=== PATIENT | female | born 1975 | race African-American/Black ===

== ENCOUNTER 2021-01-07 08:12 | Emergency (ER) | payer MEDICAID, OTHER ==
[~2021-01-07] VITALS: Ht 180.3 cm; Wt 89.0 kg
[2021-01-07] MEDS ORDERED: ONDA4TAB11 PO (08:53)
[2021-01-07] MEDS ORDERED: IBUP-2028 MT (08:54)
[2021-01-07] MEDS ORDERED: ONDANSETRON HCL 4MG/2ML INJ IV ONE (09:00)
[2021-01-07] MEDS ORDERED: SODIUM CHLORIDE 0.9% 1,000 ML IV ONE (09:00)
[2021-01-07] MEDS ORDERED: KETOROLAC 30MG/ML VIAL IV ONE (09:00)
[2021-01-07 10:44] LABS: BASOPHILS % 0.5 % (0.0-2.0); HEMATOCRIT. 41.9 % (36.0-48.0); HEMOGLOBIN. 14.2 g/dL (12.0-16.0); LYMPHOCYTES % 13.2 % (20.0-50.0); MEAN CORPUSCULAR VOLUME 88.4 fL (81.0-99.0); NEUTROPHILS % 84.3 % (40.0-76.0); PLATELET 341 x1000/uL (130-400); RED BLOOD CELL COUNT 4.74 mill/uL (4.2-5.4); RED CELL DISTRIBUTION WIDTH 12.8 % (11.6-14.6)
[2021-01-07 10:50] LABS: CHLORIDE 111 mEq/L (98-107)
[2021-01-07 10:59] LABS: HCG SCREEN NEGATIVE
[2021-01-07 11:12] VITALS: BP 135/89
== END 2021-01-07 11:42 | disposition home or self-care (01) ==
LOC: ER 08:12
DX: N94.6 Dysmenorrhea, unspecified (principal); R10.9 Unspecified abdominal pain
CPT/HCPCS: 36415; 76830; 76856; 80053; 81025; 84703; 85025; 96361; 96374; 96375; 99284; J1885; J2405; J7030

== ENCOUNTER 2021-01-09 14:04 | Emergency (ER) | payer MEDICAID ==
[~2021-01-09] VITALS: Ht 180.3 cm; Wt 88.0 kg
[~2021-01-09 14:04] MED LIST: IBUP-2028 MT; ONDA4TAB11 PO
[2021-01-09] MEDS ORDERED: MORPHINE SULFATE 4 MG/ML CPJ (NOT FOR IM USE) IV STA (15:08)
[2021-01-09] MEDS ORDERED: ONDANSETRON 4MG ODT PO STA (15:08)
[2021-01-09] MEDS ORDERED: SODIUM CHLORIDE 0.9% 1,000 ML IV ONE (15:15)
[2021-01-09 16:05] LABS: CLARITY URINE CLEAR (CLEAR); COLOR URINE DARK YELLOW (YELLOW); KETONES URINE 3+ (NEGATIVE); LEUKOCYTE ESTERASE URINE TRACE (NEGATIVE); NITRITE URINE NEGATIVE (NEGATIVE); OCCULT BLOOD URINE 3+ (NEGATIVE); PH URINE 7.5 (4.5-8.0); PROTEIN URINE 1+ (NEGATIVE); SPECIFIC GRAVITY URINE 1.032 (1.005-1.030)
[2021-01-09 16:15] LABS: BASOPHILS % 0.8 % (0.0-2.0); EOSINOPHILS % 0.1 % (0.0-5.0); HEMOGLOBIN. 14.5 g/dL (12.0-16.0); LYMPHOCYTES % 22.9 % (20.0-50.0); MEAN CORPUSCULAR HEMOGLOBIN 30.3 pg (28.0-32.0); MEAN CORPUSCULAR VOLUME 87.6 fL (81.0-99.0); MEAN PLATELET VOLUME 7.8 fl (7.4-10.4); MONOCYTES % 2.8 % (2.0-8.0); NEUTROPHILS % 73.4 % (40.0-76.0); PLATELET 390 x1000/uL (130-400); RED BLOOD CELL COUNT 4.79 mill/uL (4.2-5.4); RED CELL DISTRIBUTION WIDTH 12.8 % (11.6-14.6)
[2021-01-09 16:23] LABS: CHLORIDE 109 mEq/L (98-107)
[2021-01-09 16:31] LABS: HCG SCREEN NEGATIVE
[2021-01-09] MEDS ORDERED: CEPH500C2 MT (18:19)
[2021-01-09] MEDS ORDERED: HYDR-4001 MT (18:19)
[2021-01-09 19:14] VITALS: BP 149/80
== END 2021-01-09 19:15 | disposition home or self-care (01) ==
LOC: ER 14:04
DX: R10.30 Lower abdominal pain, unspecified (principal); N93.9 Abnormal uterine and vaginal bleeding, unspecified; N39.0 Urinary tract infection, site not specified; N80.9 Endometriosis, unspecified; R11.10 Vomiting, unspecified; R55 Syncope and collapse; R56.9 Unspecified convulsions
CPT/HCPCS: 36415; 71045; 74176; 80053; 81003; 81025; 83690; 83880; 84484; 84703; 85025; 87086; 93005; 96361; 96374; 99285; J2270; J7030; Q0162

== ENCOUNTER 2021-09-28 12:19 | Emergency (ER) | payer MEDICAID ==
[~2021-09-28] VITALS: Ht 177.8 cm; Wt 82.0 kg
[~2021-09-28 12:19] MED LIST changes: +CEPH500C2 MT; +HYDR-4001 MT
[2021-09-28 12:46] VITALS: BP 151/96
== END 2021-09-28 16:36 | disposition left against medical advice (07) ==
LOC: ER 12:19
DX: Z53.21 Procedure and treatment not carried out due to patient leaving prior to being seen by health care provider (principal)

== ENCOUNTER 2023-02-26 08:18 | Emergency (ER) | payer MEDICAID ==
[~2023-02-26] VITALS: Ht 170.2 cm; Wt 77.0 kg
[2023-02-26 08:22] VITALS: O2SAT 99
[2023-02-26 09:19] LABS: BASOPHILS % 0.6 % (0.0-2.0); HEMATOCRIT. 42.9 % (36.0-48.0); HEMOGLOBIN. 14.4 g/dL (12.0-16.0); LYMPHOCYTES % 25.9 % (20.0-50.0); MEAN CORPUSCULAR HEMOGLOBIN 30.6 pg (28.0-32.0); MEAN CORPUSCULAR HGB CONC 33.6 g/dL (31.0-37.0); MEAN CORPUSCULAR VOLUME 90.9 fL (81.0-99.0); MEAN PLATELET VOLUME 8.5 fl (7.4-10.4); MONOCYTES % 4.6 % (2.0-8.0); NEUTROPHILS % 68.9 % (40.0-76.0); PLATELET 197 x1000/uL (130-400); RED BLOOD CELL COUNT 4.71 mill/uL (4.2-5.4); RED CELL DISTRIBUTION WIDTH 12.8 % (11.6-14.6); WHITE BLOOD COUNT 4.3 x1000/uL (4.5-11.0)
[2023-02-26 09:27] LABS: ALANINE AMINOTRANSFERASE 17 IU/L (10-49); ALBUMIN 4.5 g/dL (3.2-4.8); ASPARTATE AMINOTRANSFERASE 25 IU/L (<34); BILIRUBIN TOTAL 0.2 mg/dL (0.1-1.0); CALCIUM 9.2 mg/dL (8.7-10.4); CARBON DIOXIDE 26 mEq/L (21-32); CHLORIDE 107 mEq/L (98-107); CREATININE 0.8 mg/dL (0.6-1.0); GLUCOSE 141 mg/dL (70-105); PROTEIN TOTAL 6.9 g/dL (6.0-8.3); SODIUM 140 mEq/L (136-145); UREA NITROGEN BLOOD 5 mg/dL (9-23)
[2023-02-26 09:38] LABS: ETHANOL BLOOD < 10 mg/dL (<10)
[2023-02-26 11:40] LABS: CLARITY URINE CLEAR (CLEAR); COLOR URINE YELLOW (YELLOW); GLUCOSE URINE NEGATIVE (NEGATIVE); KETONES URINE 1+ (NEGATIVE); LEUKOCYTE ESTERASE URINE NEGATIVE (NEGATIVE); NITRITE URINE POSITIVE (NEGATIVE); OCCULT BLOOD URINE NEGATIVE (NEGATIVE); PH URINE 8.5 (4.5-8.0); PROTEIN URINE 1+ (NEGATIVE); SPECIFIC GRAVITY URINE 1.019 (1.005-1.030); UROBILINOGEN URINE 0.2 E.U./dL (0.2-1.0)
[2023-02-26 11:42] VITALS: BP 125/80; PULSE 86; RESP 16; TEMP 98.6
[2023-02-26 11:43] LABS: YEAST URINE NONE SEEN
[2023-02-26 12:23] LABS: BACTERIA URINE 4+; SQUAMOUS EPITHELIAL CELL URINE 1+ /lpf (RARE/1+); WBC URINE 0-2 /hpf (0-2)
[2023-02-26 16:24] LABS: *AMPHETAMINES SCREEN URINE NEGATIVE (NEGATIVE); *BARBITURATES SCREEN URINE NEGATIVE (NEGATIVE); *BENZODIAZEPINES SCREEN URINE NEGATIVE (NEGATIVE); *COCAINE SCREEN URINE NEGATIVE (NEGATIVE); CANNABINOID URINE SCREEN PRESUMPTIVE POSITIVE (NEGATIVE); METHADONE URINE SCREEN Neg (NEGATIVE); OPIATES URINE SCREEN NEGATIVE (NEGATIVE); PHENCYCLIDINE URINE SCREEN NEGATIVE (NEGATIVE)
== END 2023-02-26 14:08 | disposition home or self-care (01) ==
LOC: ER 08:18
DX: R19.7 Diarrhea, unspecified (principal); Z86.59 Personal history of other mental and behavioral disorders
CPT/HCPCS: 36415; 71045; 80053; 80305; 80320; 81003; 81025; 83605; 85025; 93005; 99285; G0480